=== PATIENT | female | born 2000 | race Caucasian/White ===

== ENCOUNTER 2025-03-05 18:12 | Emergency (ER) | payer OTHER, MEDICAID, SELFPAY ==
--- OUTSIDE RECORDS SUMMARY | 2025-03-05 18:26 | XMS_ITS | Clinical Summary ---
Author Organization [facility] Address [address] [place] [address] Care Team Providers Care Vmware Architect Name Role Phone Unavailable Primary Care Provider Unavailabl e Source Comments [facility] [employer],non-owned Affiliates and Associated Physician Practices is amultiple site organization consisting of ambulatory clinics and hospital sitesin [place], [place], [place] and [place]. This disclosure is being madepursuant to the Care Everywhere program and may not contain all information available regarding this patient. Last updated 18.[facility] [employer] Allergies No known active allergies Medications * Be aware that medications may not be up to date on this document. Alwaysverify current medications with the patient. OtherIndications :unsure of name Reasons: unsure of name Active Family History Medical History Relation Name Comments None Known Father None Known Mother Relation Name Status Comments Father Mother Social History Tobacco Use Types Packs/Day Years Used Date Smoking Tobacco: Never Smokeless Tobacco: Never Alcohol Use Standard Drinks/Week Comments Yes 0 (1 standard drink = 0.6 oz pur e alcohol) occasionally Comments No Sex and Gender Information Value Date Recorded Sex Assigned at Not on file Legal Sex Female 10:14 AM CDT Gender Identity Not on file Sexual Orientation Not on file Last Filed Vital Signs Vital Sign Reading Time Taken Comments Blood Pressure 102/62 12/03/2020 1:31 PM CIRCUIT BREAKER ASSEMBLER Pulse 92 12/03/2020 1:31 PM CIRCUIT BREAKER ASSEMBLER Temperature 37.3 C (99.1 F) 12/03/2020 1:31 PM CIRCUIT BREAKER ASSEMBLER Respiratory Rate 20 12/03/2020 1:31 PM CIRCUIT BREAKER ASSEMBLER Oxygen Saturation 95% 12/03/2020 1:31 PM CIRCUIT BREAKER ASSEMBLER Inhaled Oxygen Concentration - - Weight 83.5 kg (184 lb) 12/03/2020 1:31 PM CIRCUIT BREAKER ASSEMBLER Height 165.1 cm (5' 5 ) 12/03/2020 1:31 PM CIRCUIT BREAKER ASSEMBLER Body Mass Index 30.62 12/03/2020 1:31 PM CIRCUIT BREAKER ASSEMBLER Plan of Treatment Health Maintenance Due Date Last Done Comments HIV SCREENING 2014 HPV VACCINE (1 - 3-dose series) 2014 CHLAMYDIA/GONORRHEA SCREENING 2015 HEPATITIS C SCREENING 04/11/2017 DTAP/TDAP/TD VACCINES (1 - Tdap) 2018 HEPATITIS B VACCINE (1 of 3 - 19+ 3-dose series) 2018 COVID-19 VACCINE ( - 2023-2 5 season) 2024 DEPRESSION SCREENING 11/15/2024 INFLUENZA VACCINE (Season Ended) 2025 ZOSTER VACCINE (1 of 2) 2049 HIB VACCINE Aged Out No longer eligi ble based on patient's age to complete this topic MENINGOCOCCAL (Group B) VACC INE SHARED DECISION-MAKING Aged Out No longer eligibl e based on patient's age to complete this topic MENINGOCOCCAL GROUPS A/C/Y/W VACCINE Aged Out No longer eligible b ased on patient's age to complete this topic PNEUMOCOCCAL VACCINE Aged Out No long er eligible based on patient's age to complete this topic
--- OUTSIDE RECORDS SUMMARY | 2025-03-05 18:27 | XMS_ITS | Referral Summary ---
Author Organization [facility] [address] [facility] [address] [facility] [address] [place] [address] Care Team Providers Care Hide Washer Name Role Phone Douglas Walters MD Primary Care Provider [phone] Allergies No known active allergies Medications hydrocortisone (ANUSOL-HC) 2.5 % rectal cream Insert into the rectum 2 (two) times a day 30 g 09/27/2019 Active Active Problems Problem Noted Date Diagnosed Date Lymphadenitis 10/24/2019 Constipation 09/27/2019 Assessment & Plan (09/27/2019 2:22 PM HOSPICE VOLUNTEER): We discussed the importance of high-fiber and a lot of fluid in her diet. We also discussed her decreased appetite and decreased intake will decrease the frequency of her stools. She will try MiraLax as directed as needed. If her symptoms worsen or persist she is to call. Rectal bleeding 09/27/2019 Assessment & Plan (09/27/2019 2:22 PM HOSPICE VOLUNTEER): The rectal bleeding as per possibly from a rectal fissure. She did not have any external hemorrhoids. She will try and anusol. If her symptoms worsen or persist she will call for referral to GI specialist. Major depressive disorder with single episode Social History Tobacco Use Types Packs/Day Years Used Date Smoking Tobacco: Never Smokeless Tobacco: Never PHQ-2 Answer Date Recorded PHQ-2 Score 0 09/27/2019 Personal Safety Answer Date Recorded Getting School Help Needed Not on file 03/15 /2024 Comments Unknown Sex and Gender Information Value Date Recorded Sex Assigned at Not on file Legal Sex Female 4:39 AM HOSPICE VOLUNTEER Gender Identity Not on file Sexual Orientation Not on file Last Filed Vital Signs Vital Sign Reading Time Taken Comments Blood Pressure 126/70 10/24/2019 3:59 PM HOSPICE VOLUNTEER Pulse 81 10/24/2019 3:59 PM HOSPICE VOLUNTEER Temperature 36.3 C (97.4 F) 10/24/2019 3:59 PM HOSPICE VOLUNTEER Respiratory Rate 16 10/24/2019 3:59 PM HOSPICE VOLUNTEER Oxygen Saturation - - Inhaled Oxygen Concentration - - Weight 74.4 kg (164 lb) 10/24/2019 3:59 PM HOSPICE VOLUNTEER Height 165.1 cm (5' 5 ) 10/24/2019 3:59 PM HOSPICE VOLUNTEER Body Mass Index 27.29 10/24/2019 3:59 PM HOSPICE VOLUNTEER Plan of Treatment Not on file Insurance [facility] CHOICE [facility]US [facility] HMO/PPO Address: [facility] [address] [place] [address] Care Teams Hide Washer Relationship Specialty Start Date End Date Douglas Walters MD [address] [address] [place] [address] PCP - General Family Medicine 09/25/19
--- OUTSIDE RECORDS SUMMARY | 2025-03-05 18:27 | XMS_ITS | Clinical Summary ---
Author Organization [facility] Address [address] [facility] [address] [place] [address] Phone Care Team Providers Care Bass Viol Repairer Name Role Phone Leon Deleon MD Primary Care Provider [phone] Allergies No known active allergies Medications VIT-IRON FUM-FOLIC AC ORAL Take by mouth. Activ e cyclobenzaprine (FLEXERIL) 10 mg tablet Take 1 Tablet (10 mg) by mouth 3 times daily as needed for Spasm. 30 Tablet 06/27/2024 10:12 AM CDT 4 Active Additional Information Patient not taking.Reported on 12/20/2024 ibuprofen (MOTRIN) 600 mg tablet Take 1 Tablet (600 mg) by mouth every 6 hours as needed for Mild Pain. 20 Tablet 06/27/2024 10:12 AM CDT 4 Active Additional Information Patient not taking.Reported on 12/20/2024 ferrous sulfate 325 mg (65 mg iron) tablet Take 1 Tablet (325 mg) by mouth 2 times daily. 60 Tablet 06/27/2024 10:12 AM CDT 4 Active Additional Information Patient not taking.Reported on 12/20/2024 sennosides-docu sate sodium (SENNA-S) 8.6-50 mg tablet Take 1 Tablet by mouth daily. 28 Tablet 06/27/2024 10:12 AM CDT 4 Active Additional Information Patient not taking.Reported on 12/20/2024 spironolactone (ALDACTONE) 50 mg tablet Take 1 Tablet by mouth daily. Active Active Problems Problem Noted Date Diagnosed Date Pain of left hip 06/26/2024 Polyhydramnios in third trimester 05/16/2024 Decreased movements in second trimester Lymphadenitis 10/24/2019 Rectal bleeding 09/27/2019 Overview (06/23/2024): Last Assessment & Plan: The rectal bleeding as per possibly from a rectal fissure. She did not have any external hemorrhoids. She will try and anusol. If her symptoms worsen or persist she will call for referral to GI specialist. Constipation 09/27/2019 Overview (06/23/2024): Last Assessment & Plan: We discussed the importance of high-fiber and a lot of fluid in her diet. We also discussed her decreased appetite and decreased intake will decrease the frequency of her stools. She will try MiraLax as directed as needed. If her symptoms worsen or persist she is to call. Insomnia 01/05/2019 General medical exam 09/05/2018 Major depressive disorder with single episode Cannabis use disorder, mild, abuse 09/04/2018 Right leg pain 01/14/2017 Encounters Date Type Department Care Team Description 02/06/2025 External Device Data ST[facility] ABSTRACTION Provider, Abstract 01/31/2025 External Device Data [facility] ABSTRACTION Provider, Abstract 01/22/2025 External Device Data [facility] ABSTRACTION Provider, Abstract 01/20/2025 External Device Data [facility] ABSTRACTION Provider, Abstract 01/19/2025 External Device Data [facility] ABSTRACTION Provider, Abstract 01/16/2025 External Device Data [facility] ABSTRACTION Provider, Abstract 01/03/2025 External Device Data [facility] ABSTRACTION Provider, Abstract 01/02/2025 External Device Data [facility] ABSTRACTION Provider, Abstract 12/20/2024 9:15 AM COMPLAINT SUPERVISOR Office Visit [facility] O[facility] [address] [place] [address] Cristo Herring, THELMA Menometrorrhagia (Primary Dx) 12/07/2024 External Device Data ST[facility] ABSTRACTION Provider, Abstract 12/06/2024 External Device Data ST[facility] ABSTRACTION Provider, Abstract 12/05/2024 External Device Data STL ABSTRACTION Provider, Abstract from Last 3 Months Immunizations Immunization Administration Dates Next Due (ADACEL/BOOSTRIX)(10 YR UP) TDAP VACCINE, 0.5ML, IM 04/14/2024 (M-M-R II/PRIORIX)(12 MO UP) MEASLES, MUMPS AND RUBELLA VIRUS VACCINE, 0.5 ML IM/SUBCUT 06/26/2024() INFLUENZA VACCINE QUADRIVALE NT 3 YR UP PF IM 09/04/2018(Deferred: - patient refused flu shot) Family History Medical History Relation Name Comments Diabetes Father type II Prostate Cancer Half-Brother 2 Colon Cancer Maternal Grandfather Other Mother Bleeding Problem Neg Hx Breast Cancer Neg Hx Clotting Disorder Neg Hx Endometrial Cancer Neg Hx Ovarian Cancer Neg Hx Pancreatic Cancer Neg Hx Uterine Cancer Neg Hx Relation Name Status Comments Father Alive Half-Brother 2 Alive Maternal Grandfather Maternal Grandmother Mother Alive Paternal Grandfather Paternal Grandmother Sister 1 Alive Social History Tobacco Use Types Packs/Day Years Used Date Smoking Tobacco: Never Smokeless Tobacco: Never Tobacco Cessation:Counseling Given: Not Answered Alcohol Use Standard Drinks/Week Comments No 0 (1 standard drink = 0.6 oz pur e alcohol) Feeling Safe Answer Date Recorded Are you in a relationship wi th someone who hurts you emotionally and/or physically? No 06/24/2024 Comments No Sex and Gender Information Value Date Recorded Sex Assigned at Not on file Legal Sex Female 11:57 PM CDT Gender Identity Not on file Sexual Orientation Not on file Last Filed Vital Signs Vital Sign Reading Time Taken Comments Blood Pressure 110/66 12/20/2024 9:27 AM COMPLAINT SUPERVISOR Pulse 77 05/24/2022 11:55 AM CDT Temperature 36.1 C (97 F) 06/27/2024 9:15 AM CDT Respiratory Rate 18 06/27/2024 5:13 AM CDT Oxygen Saturation 98% 06/27/2024 9:15 AM CDT Inhaled Oxygen Concentration - - Weight 87.3 kg (192 lb 6.4 oz) 12/20/2024 9:27 A M COMPLAINT SUPERVISOR Height 165.1 cm (5' 5 ) 12/20/2024 9:27 AM COMPLAINT SUPERVISOR Body Mass Index 32.02 12/20/2024 9:27 AM COMPLAINT SUPERVISOR Plan of Treatment Health Maintenance Due Date Last Done Comments HPV VACCINES (1 - 3-dose series) 2014 HEPATITIS B VACCINES (1 of 3 - 19+ 3-dose series) 2018 CERVICAL CANCER SCREENING 2020 PAP SMEAR 2020 06/29/2016 HPV/Cotest (21-29) 06/29/2021 06/29/2016 INFLUENZA VACCINE (#1) 2024 HPV/Cotest (30-65) 2029 06/29/2016 DTAP/TDAP/TD VACCINES (2 - T d or Tdap) 04/14/2034 04/14/2024 CHLAMYDIA SCREENING (ANNUAL) 11-24 YEARS Discontinued 11/02/2023, 05/24/2022, 07/26/2019, Additional history exists Procedures Procedure Name Priority Date/Time Associated Diagnosis Comments GC/CHLAMYDIA, UROGENITAL Routine 11/02/2023 10:45 AM COMPLAINT SUPERVISOR Missed menses Screening examination for STD (sexually transmitted disease) CERV/VAG CYTO SCREEN PAP RLFX HPV Routine 06/29/2016 Well woman exam with routine gynecological exam from Last 3 Months or Most Recently Relevant to Health Maintenance Results * GC/CHLAMYDIA, UROGENITAL (11/02/2023 10:45 AM COMPLAINT SUPERVISOR) C TRAC RNA NOT DETECTED NOT DETECTED [facility] N.GONORRHOEAE RNA, TMA NOT DETECTED NOT DETECTED [facility] COMMENT INFECTIOUS DISEASE [facility] Comment: The analytical performance characteristics of this assay, when used to test SurePath(TM) specimens have been determined by [facility]. The modifications have not been cleared or approved by the FDA. This assay has been validated pursuant to the CLIA regulations and is used for clinical purposes. For additional information, please refer to https://education.InStitchu/faq/KZY107 (This link is being provided for information/ educational purposes only.) Test Performed at: [facility] [address] [id number] Tati Burton MD Urine (Urine, 1st catch) 11/02/2023 10:45 AM COMPLAINT SUPERVISOR 11/02/2023 10:45 AM COMPLAINT SUPERVISOR us Елена Hernandes MD MICROBIOLOGY - GENERAL ORDERABLES Final Result [facility] [phone] [facility] [address] [place] [address] * CERV/VAG CYTOPATH, THIN PREP IMAGR RFLX HPV (CP) (06/29/2016) Specimen from genital system (specimen) SWAB OF ENDOCERVIX / Unknown us Elissa Jones NP PATHOLOGY/CYTOLOGY ORDERABLES Final Result Performing Organization Address City/[facility] Co de Phone Number EXTERNAL LAB from Last 3 Months or Most Recently Relevant to Health Maintenance Insurance [facility] CHOICE [address] [place] [address] MEDICAID [id number] * Guarantor: Xiomy Salas Account Type Relation to Patient Date of Phone Billing Address Personal/Family Mother [id number] [place] [address] Advance Directives For more information, please contact: [phone] * Full Code (Latest Code Status on File) Date Activated Date Inactivated Comments 06/25/2024 5:39 PM 06/27/2024 1:39 PM * Full Code Date Activated Date Inactivated Comments 06/24/2024 7:36 AM 06/25/2024 5:39 PM * Full Code Date Activated Date Inactivated Comments 04/06/2024 9:44 AM 04/06/2024 1:02 PM * Full Code Date Activated Date Inactivated Comments 09/04/2018 12:54 AM 09/05/2018 12:39 PM Care Teams Bass Viol Repairer Relationship Specialty Start Date End Date Leon Deleon MD [address] [place] [address] [address] [place] [address] PCP - General Pediatrics 07/20/15
--- OUTSIDE RECORDS SUMMARY | 2025-03-05 18:27 | XMS_ITS | Clinical Summary ---
Author Organization [facility] [address] [facility] [address] [facility] [address] [place] [address] Care Team Providers Care Sld Inclusion Teacher Name Role Phone Douglas Walters MD Primary Care Provider Allergies No known active allergies Medications hydrocortisone (ANUSOL-HC) 2.5 % rectal cream Insert into the rectum 2 (two) times a day 30 g 09/27/2019 Active Active Problems Problem Noted Date Diagnosed Date Lymphadenitis 10/24/2019 Constipation 09/27/2019 Assessment & Plan (09/27/2019 2:22 PM SQUARING MACHINE OPERATOR): We discussed the importance of high-fiber and a lot of fluid in her diet. We also discussed her decreased appetite and decreased intake will decrease the frequency of her stools. She will try MiraLax as directed as needed. If her symptoms worsen or persist she is to call. Rectal bleeding 09/27/2019 Assessment & Plan (09/27/2019 2:22 PM SQUARING MACHINE OPERATOR): The rectal bleeding as per possibly from a rectal fissure. She did not have any external hemorrhoids. She will try and anusol. If her symptoms worsen or persist she will call for referral to GI specialist. Major depressive disorder with single episode Medical History Medical History Date Comments Lymphadenitis 10/24/2019 Family History Medical History Relation Name Comments No Known Problems Father No Known Problems Mother Relation Name Status Comments Father Alive Mother Alive Social History Tobacco Use Types Packs/Day Years Used Date Smoking Tobacco: Never Smokeless Tobacco: Never PHQ-2 Answer Date Recorded PHQ-2 Score 0 09/27/2019 Personal Safety Answer Date Recorded Getting School Help Needed Not on file 01/27 Comments Unknown Sex and Gender Information Value Date Recorded Sex Assigned at Not on file Legal Sex Female 4:39 AM SQUARING MACHINE OPERATOR Gender Identity Not on file Sexual Orientation Not on file Obstetrics History Last Filed Vital Signs Vital Sign Reading Time Taken Comments Blood Pressure 126/70 10/24/2019 3:59 PM SQUARING MACHINE OPERATOR Pulse 81 10/24/2019 3:59 PM SQUARING MACHINE OPERATOR Temperature 36.3 C (97.4 F) 10/24/2019 3:59 PM SQUARING MACHINE OPERATOR Respiratory Rate 16 10/24/2019 3:59 PM SQUARING MACHINE OPERATOR Oxygen Saturation - - Inhaled Oxygen Concentration - - Weight 74.4 kg (164 lb) 10/24/2019 3:59 PM SQUARING MACHINE OPERATOR Height 165.1 cm (5' 5 ) 10/24/2019 3:59 PM SQUARING MACHINE OPERATOR Body Mass Index 27.29 10/24/2019 3:59 PM SQUARING MACHINE OPERATOR Plan of Treatment Not on file Insurance [facility] CHOICE [facility]US [facility] HMO/PPO Address: [facility] [address] [place] [address] Care Teams Sld Inclusion Teacher Relationship Specialty Start Date End Date Douglas Walters MD [facility] [address] [address] PCP - General Family Medicine 09/25/19
[2025-03-05 18:34] VITALS: BP 127/72; PULSE 90; RESP 16; O2SAT 100
[2025-03-05 18:41] LABS: EDSTREPNEGPOS1 Negative (Negative)
--- NOTE | 2025-03-05 18:59 | ED_ITS ---
HPI - URI/Sore Throat General Chief Complaint: Upper Respiratory Infection Stated Complaint: Sore Throat Time Seen by Provider: 03/05/25 18:50 Source: patient, RN notes reviewed and old records reviewed Mode of arrival: ambulatory Limitations: no limitations History of Present Illness HPI Narrative: 24 year old female who presents to [facility] care with complaints of sore throat and some sinus congestion with drainage for the past 5 days. Patient reports that she she saw some white spots on her tonsils has had tonsil stones before but theses were different. Patient reports that she has not had fevers chills sweats or any body aches. She reports that she has bee taking Ibuprofen and also Sudafed for her symptoms. Patient concerned for infection is traveling to [place] this weekend for . MD elicited complaint: sore throat Onset (ago): day(s) (5) Consistency: constant Pain scale (0-10): 2 Able to tolerate fluids by mouth: Yes Exacerbating factors: swallowing Treatments prior to arrival: ibuprofen and other (Sudafed) Related Data Home Medications ?Medication ?Instructions ?Recorded ?Confirmed ?Last Taken ?Type spironolactone 50 mg tablet mg 03/05/25 Unknown History Allergies Allergy/AdvReac Type Severity Reaction Status Date / Time No Known Allergies Allergy Verified 03/05/25 18:33 Review of Systems Review of Systems: CONSTITUTIONAL: Denies malaise, chills, sweats, or fever. EYES: Denies visual changes, redness, or discharge. ENT: Reports rhinorrhea, congestion, sinus pain, no otalgia and positive for sore throat. CARDIOVASCULAR: Denies chest pain, palpitations, or edema. RESPIRATORY: Reports no cough.? Denies dyspnea. GASTROINTESTINAL: Denies abdominal pain, nausea, vomiting, diarrhea SKIN: Denies rash or itching. MUSCULOSKELETAL: Denies myalgia. NEUROLOGIC: Denies headache. All systems reviewed & are unremarkable except as noted in HPI and below PMFSH Past Medical History Medical History (Updated 03/06/25 @ 21:00 by Judy Cardoza NP) Acne Social History Social History (Updated 03/06/25 @ 21:00 by Judy Cardoza NP) Smoking status: Current every day smoker Tobacco type: e-cigarettes/vaping Alcohol intake: current Alcohol use details: social Substance use type: does not use Living arrangements: with family Gender identity (if verbalized by the patient): Female Comments At time of signature, agree with nursing past medical, surgical, social and family history. There is no relevant family history pertinent to the presenting complaint Exam Narrative: GENERAL: Well-appearing, well-nourished, and in no acute distress. HEAD: Normocephalic EYES: PERRLA, conjunctivae clear ENT: Nares clear, turbinates edematous and erythematous, clear discharge. Mucous membranes moist. TM pearly maria with dull light reflex bilaterally; no tragal tenderness. Oropharynx erythematous without lesions. Tonsils red enlarged and with some white spots that look like tonsil stones, , no drooling, no hoarseness, no trismus, uvula midline.post nasal drainage NECK: Supple. No lymphadenopathy CHEST: Clear to auscultation, breath sounds equal. No wheezing, rhonchi, rales, or stridor. No respiratory distress, speaks in full sentences. no cough noted SAO2 100% on room air HEART: Regular rate and rhythm. No murmur heard. SKIN: Warm, dry, no rash. NEURO: Alert and oriented x3. PSYCH: Normal mood and affect Course Course Emergency Course: Patient is aware of diagnosis, understands and agrees to treatment plan.? Anticipatory guidance given.? Patient agrees to follow-up as directed and is aware of reasons to seek care at the emergency department. Portions of this record may have been created with voice recognition software Level of Care: Express Care Visit Vital Signs Vital signs: Vital Signs Pulse Rate 90 03/05/25 18:34 Respiratory Rate 16 03/05/25 18:34 Blood Pressure 127/72 03/05/25 18:34 Pulse Oximetry 100 03/05/25 18:34 Oxygen Delivery Room Air 03/05/25 18:34 Pulse Rate 90 03/05/25 18:34 Respiratory Rate 16 03/05/25 18:34 Blood Pressure 127/72 03/05/25 18:34 Pulse Oximetry 100 03/05/25 18:34 Oxygen Delivery Room Air 03/05/25 18:34 Reviewed MDM - URI/Sore Throat MDM Narrative Medical decision making narrative: Differential diagnosis considered: Eid virus, strep pharyngitis, allergic rhinitis, upper respiratory tract infection, sinusitis, rhinosinusitis, nasopharyngitis. viral pharyngitis, otitis media, otitis externa, pneumonia, bronchitis, viral cough syndrome, viral syndrome, and influenza.? Exam findings show no acute concerns or changes; patient is non-toxic appearing and is in no distress.? Patient is appropriate for outpatient treatment and follow-up. Differential Diagnosis Differential diagnosis: Likely upper respiratory infection, otitis media, sinusitis, viral infection, pharyngitis and other (strep pharyngitis) Medical Records Attestation: I reviewed the patient's medical records. Lab Data Attestation: I reviewed the patient's lab results. Lab results narrative: strep screen negative, culture sent Labs: Lab Results 03/05/25 Range/Units 18:30 POC Grp A Strep Screen Negative (Negative) reviewed Critical Care Time Critical Care Time Critical Care Time: No Discharge Plan Discharge Clinical Impression: Pharyngitis Qualifiers: Pharyngitis/tonsillitis etiology: unspecified etiology Qualified Code(s): J02.9 - Acute pharyngitis, unspecified Patient Disposition: Home Condition: Stable Instructions: Antibiotic Form, Pharyngitis (ED) Additional Instructions: . Take the entire course of antibiotics. Throw away your current toothbrush and begin using a new toothbrush in 48 hours in order to prevent re-infection. Sanitize all reusable water bottles . Do not share items with others. Salt water gargles may alleviate some of the throat discomfort. You can take Tylenol or ibuprofen per the package instructions for pain/fever. Amoxicillin twice daily for 7 days Strep culture sent Zyrtec Claritin or [place] daily Tylenol or ibuprofen any fever pain If your symptoms persist, change or worsen significantly before you can contact your personal physician then please, without delay, go to the emergency department for further evaluation. Follow-up with PCP in 7-10 days or sooner if needed Patient Language: Montenegrin Prescriptions: New amoxicillin 875 mg tablet 875 mg PO Q12H Qty: 14 0RF No Action spironolactone 50 mg tablet Follow-up/Referrals: PHYSICIAN,CORPORATE ADMINISTRATIVE ASSISTANT [Primary Care Provider] - Time of Disposition: 19:11 Quality [place] Coma Scale Eyes: Open Verbal: Oriented and Alert Motor: Follows Commands Emmanuel Coma Total Score: 15
== END 2025-03-05 19:19 | disposition home or self-care (01) ==
PROVIDERS: Emergency Provider Registered Nurse
DX: J02.9 Acute pharyngitis, unspecified (principal); F17.290 Nicotine dependence, other tobacco product, uncomplicated
CPT/HCPCS: 87081; 87880; 99213; G0463